=== PATIENT | female | born 1945 | race Caucasian/White ===

== ENCOUNTER 2021-03-16 06:40 | Inpatient (IN) | payer MEDICARE ==
[~2021-03-16] VITALS: Ht 152.4 cm; Wt 112.0 kg
--- NOTE | 2021-03-16 06:40 | NUR ---
PT TO ROOM VIA EMS STRETCHER FOR BEDSIDE TRIAGE
--- NOTE | 2021-03-16 07:30 | NUR ---
PATIENT HAVING TELENUROLGY CONSULT WITH DR ROSADO
[2021-03-16 08:03] LABS: GFR 54 ML/MIN (>=60 (CALC)); GFR FOR AFR.AMER. > 60 ML/MIN (>=60 (CALC))
[2021-03-16 08:06] LABS: HEMATOCRIT 41.1 % (37.0-47.0); HEMOGLOBIN 13.1 g/dl (12.0-16.0); IMMATURE GRANULOCYTES 0.2 % (0.0-5.0); MEAN CELL VOLUME 94.7 fL CALC (80.0-100.0); MEAN CORPUSCULAR HGB 30.2 pG CALC (26.0-32.0); MEAN CORPUSCULAR HGB CONC 31.9 g/dL CAL (32.0-36.0); NEUT# 4.39 thou/uL (2.00-7.15); RED BLOOD COUNT 4.34 mill/uL (4.20-5.60); RED CELL DISTRI WIDTH 14.4 % (11.5-15.5)
--- NOTE | 2021-03-16 08:10 | NUR ---
PATIENT RETURNED TO ROOM 12, CURRENTLY BEDSIDE.
[2021-03-16 08:23] LABS: ALKALINE PHOSPHATASE 94 u/l (38-126); ANION GAP 12 (6-22 (CALC)); BILIRUBIN, TOTAL 0.8 mg/dL (0.0-1.4); BUN 20 mg/dL (8-23); BUN/CREATININE RATIO 20 (12-20 (CALC)); CARBON DIOXIDE 26 mmol/l (22-30); CHLORIDE 100 mmol/l (95-108); ETHYL ALCOHOL 0 mg/dl (0-30); GFR 54 ML/MIN (>=60 (CALC)); GFR FOR AFR.AMER. > 60 ML/MIN (>=60 (CALC)); LIPASE 49 u/l (23-300); MAGNESIUM 1.8 mg/dL (1.6-2.3); POTASSIUM 4.5 mmol/l (3.5-5.1); SGOT/AST 23 u/l (9-36); SODIUM 134 mmol/l (137-146); TOTAL PROTEIN 7.5 g/dL (6.3-8.2)
[2021-03-16 08:25] LABS: ACT PARTIAL THROMBO TIME 23.3 SECONDS (20.0-32.5); INTERNATIONAL NORMALIZED RATIO 0.9 RATIO (0.7-1.3); PROTHROMBIN TIME 9.5 SECONDS (9.0-12.5)
--- NOTE | 2021-03-16 09:10 | NUR ---
PATIENT RETURNED TO ROOM AT THIS TIME. CURRENTLY BEDSIDE.
[2021-03-16 09:16] LABS: URINE BILIRUBIN - DIPSTICK NEGATIVE (NEGATIVE); URINE BLOOD DIPSTICK SMALL (NEGATIVE); URINE COLOR YELLOW; URINE GLUCOSE - DIPSTICK 100 mg/dL (NEGATIVE); URINE KETONE NEGATIVE (NEGATIVE); URINE LEUK ESTERASE NEGATIVE (NEGATIVE); URINE NITRITE - DIPSTICK NEGATIVE (Negative); URINE PROTEIN - DIPSTICK NEGATIVE (NEG-TRACE); URINE SPECIFIC GRAVITY 1.015; URINE UROBILINOGEN - DIPSTICK 0.2 E.U./dL (0.2)
[2021-03-16 09:26] LABS: D-DIMER 1.56 mg/L (0.19-0.60)
--- NOTE | 2021-03-16 13:14 | NUR ---
Reassessment of patient completed. No distress noted.
[2021-03-16] MEDS ORDERED: GABAPENTIN100 MG PO (13:50)
[2021-03-16] MEDS ORDERED: NOVOLIN R RELION (13:52)
[2021-03-16] MEDS ORDERED: NOVOLIN N100 UNIT (13:52)
--- NOTE | 2021-03-16 14:10 | NUR ---
RETURN CALL FROM ICU NURSE, REPORT GIVEN
--- NOTE | 2021-03-16 14:35 | NUR ---
PATIENT TO ICU AT THIS TIME
--- NOTE | 2021-03-16 14:35 | NUR ---
PT ARRIVED TO THE FLOOR VIA STRETCHER AND ONE PERSON ASSISTANCE FROM THE ER. PT ABLE TO SLIDE WITH MINIMAL ASSISTANCE FROM THE STRETCHER TO ICU BED. VSS, ADMISSION AND HISTORY AND NIH PREFORMED AT THIS TIME. PT ORIENTATED TO ROOM, RIGHTS, RESPONSIBILITIES AND CALL LIGHT. INSTRUCTED PT TO CALL FOR ASSISTANCE, VERBALIZES UNDERSTANDING. WILL CONTINUE TO MONITOR.
[2021-03-16 15:00] VITALS: BP 141/68
--- NOTE | 2021-03-16 15:27 | NUR ---
ALLERGIES CONFIRMED WITH PT, PT STATES SHE HAS ALLERGIES TO PENICILLIN. STATES SHE GETS HIVES WHEN TAKES PENICILLIN.
--- NOTE | 2021-03-16 15:48 | NUR ---
PT PLACED ON 2LPM NC PER PT SPO2 AND ABG. MARTÍN WELL AT THIS TIME. C4 PLANNER TO MONITOR.
[2021-03-16 16:00] VITALS: BP 135/89
[2021-03-16 17:00] VITALS: BP 133/63
[2021-03-16 18:00] VITALS: BP 138/74
--- NOTE | 2021-03-16 18:00 | NUR ---
PT NIH REMAINS 0 AT THIS TIME. TALKING ON CELLPHONE WITH DAUGHTER AND GRAND DAUGHTER. ACCUCHECK OBTAINED, INSULIN PROVIDED. PT DENIES NEEDS OR CONCERNS. MEAL TRAY SAT UP FOR PT. PT ABLE TO FEED SELF INDEPENDANYL. INSTRUCTED PT TO CALL FOR ASSISTANCE, VERBALIZES UNDERSTANDING.
--- NOTE | 2021-03-16 19:00 | NUR ---
ROCKY RECEIVED FROM MADIE SALDANA.
[2021-03-16 20:10] VITALS: BP 138/62
--- NOTE | 2021-03-16 20:19 | NUR ---
ASSESSMENT COMPLETE. VSS. PATIENT RESTING IN BED WATCHING TELEVISION. DENIES PAIN AT THIS TIME. NO CONCERNS EXPRESSED. BED IN LOW POSITION, LOCKED. CALL LIGHT WITHIN REACH, INSTRUCTED TO CALL FOR ASSISTANCE.
--- NOTE | 2021-03-16 23:00 | NUR ---
RESTING QUIETLY EYES CLOSED. NO DISTRESS NOTED AT THIS TIME. CALL LIGHT WITHIN REACH.
[2021-03-17] VITALS (7 sets, daily range): BP systolic 133–205; BP diastolic 60–86
--- NOTE | 2021-03-17 04:10 | NUR ---
RESTING QUIETLY. VSS. NO DISTRESS NOTED. CALL LIGHT WITHIN REACH.
[2021-03-17 05:06] LABS: HEMATOCRIT 39.8 % (37.0-47.0); HEMOGLOBIN 12.2 g/dl (12.0-16.0); MEAN CELL VOLUME 98.8 fL CALC (80.0-100.0); MEAN CORPUSCULAR HGB 30.3 pG CALC (26.0-32.0); MEAN CORPUSCULAR HGB CONC 30.7 g/dL CAL (32.0-36.0); RED BLOOD COUNT 4.03 mill/uL (4.20-5.60); RED CELL DISTRI WIDTH 14.4 % (11.5-15.5)
[2021-03-17 05:22] LABS: ANION GAP 9 (6-22 (CALC)); BUN 21 mg/dL (8-23); BUN/CREATININE RATIO 23 (12-20 (CALC)); CALCULATED LDLCHOLESTEROL 58 mg/dL (62-129 (CALC)); CARBON DIOXIDE 29 mmol/l (22-30); CHLORIDE 98 mmol/l (95-108); CHOLESTEROL HDL RATIO 4.3 (<4.4 (CALC)); CREATININE 0.9 mg/dL (0.5-1.0); GFR > 60 ML/MIN (>=60 (CALC)); GFR FOR AFR.AMER. > 60 ML/MIN (>=60 (CALC)); HDL CHOLESTEROL 30 mg/dL (>=40); MAGNESIUM 1.7 mg/dL (1.6-2.3); POTASSIUM 4.6 mmol/l (3.5-5.1); SODIUM 132 mmol/l (137-146); TOTAL CHOLESTEROL 131 mg/dl (0-199); TOTAL TRIGLYCERIDES 212 mg/dl (30-149); VLDL CHOLESTROL 42 mg/dl (0-48 (CALC))
--- NOTE | 2021-03-17 06:18 | NUR ---
600ML CLEAR YELLOW URINE EMPTIED FROM SUCTION CANISTER OF [place]. PATIENT C/O BACK PAIN AT THIS TIME, TYLENOL OFFERED.
--- NOTE | 2021-03-17 07:44 | NUR ---
BSSR RECEIVED FROM MADIE THAO. PT AWAKE ALERT AND APPROPRIATE. NIH REMAINS 0, PT DENIES PAIN, SOB OR DISCOMFORT. VS OBTAINED AND BP IS ELEVATED WILl MONITOR AND NOTIFY MD IF NEEDED.
--- NOTE | 2021-03-17 10:26 | NUR ---
PT OFF THE FLOOR AT THIS TIME FOR RADIOLOGY PROCEDURE, ABLE TO SIT AT SOB, STAND, PIVOT AND SIT IN WHEELCHAIR WITH MINIMAL STANDBY ASSISTANCE. PT PLACED ON PORTABLE O2. STABLE AT TIME OF DEPARTURE.
--- NOTE | 2021-03-17 12:00 | NUR ---
PT ARRIVED BACK TO THE FLOOR. UNSUCCESSFUL ATTEMPT X5 FOR NEW IV SITE IN ANTECUBITAL. MD NOTIFIED AND AWARE. CT OF BRAIN COMPLETED. PT WILLING TO SIT IN BS CHAIR FOR MEAL, GIVEN INSULIN, AND AM MEDICATIONS. PT AWARE OF TRANSFER TO MED-SURG UNIT. DENIES NEEDS OR CONCERNS. INSTRUCTED PT TO CALL FOR ASSISTANCE, VERBALIZES UNDERSTANDING.
--- NOTE | 2021-03-17 13:16 | NUR ---
REPORT CALLED TO MADIE BRANDON. AWARE OF NEED FOR NEW IV SITE, STATES WILL ATTEMPT ON FLOOR. PT STABLE AT TIME OF DEPARTURE.
--- NOTE | 2021-03-17 14:02 | NUR ---
PT RECEIVED TO ROOM 260 FROM ICU. SEEM ALERT AND ORIENTED X 3. NO NEURO DEFICITS NOTED UPON ASSESSMENT. ATTEMPTS TO START IV ONGOING.
--- NOTE | 2021-03-17 15:20 | NUR ---
FURTHER IV START ATTEMPTS UNSUCCESSFUL. DR MCGILL WAS TEXTED TO INFORM HIM, NO RESPONSE YET.
--- NOTE | 2021-03-17 16:12 | NUR ---
PT ASSISTED TO BSC WITH MODERATE ASSIST NEEDED. PT WITH OCCASIONAL STUMBLING OVER WORDS, SAYS THAT THIS IS NEW. NO PHYSICAL WEAKNESS NOTED.
--- NOTE | 2021-03-17 16:47 | NUR ---
PT WAS PROVIDED ZITHROMAX 500MG PO THIS AFTERNOON SHE DOES NOT HAVE IV SITE.
--- NOTE | 2021-03-17 20:00 | NUR ---
PHYSICAL ASSESMENT COMPLETE. PT CURRENTLY DENIES PAIN OR DISCOMFORT. SCHEDULED MEDICATIONS AND PRN MEDICATION ADMINISTERED, SEE E-ALIDA. BARTOLOME PLACED PER PTS REQUEST. HTN DISCUSSED WITH DR MCGILL. TO PLACE PRN BP MEDICINE. PT DENIES ANY NEEDS AT THIS TIME. PLAN OF CARE REVIEWED, PT DENIES QUESTIONS, VERBALIZES UNDERSTANDING. ITEMS WITHIN REACH, BED LOCKED IN LOW POSITION W/ BEDRAILS UP X2. CALL MABRY WITHIN REACH, AGREES TO CALL PRN.
[2021-03-18] VITALS (7 sets, daily range): BP systolic 130–193; BP diastolic 54–85
--- NOTE | 2021-03-18 | NUR ---
PT AWAKE REQUESTING MELATOIN TO HELP HER FALL ASLEEP. RESPIRATIONS REGULAR AND UNLABORED. ITEMS REMAIN WITHIN REACH, CALL MABRY REMAINS WITHIN REACH. BED REMAINS LOCKED AND IN LOW POSITION WITH BEDRAILS UP X2. WILL CONTINUE TO MONITOR.
--- NOTE | 2021-03-18 04:00 | NUR ---
PT RESTING IN BED, NO SIGNS OF DISTRESS NOTED, RESP EVEN AND UNLABORED. PT VOICES NO NEEDS OR COMPLAINTS AT THIS TIME. CALL LIGHT IN REACH, CONTINUE TO MONITOR.
[2021-03-18 05:26] LABS: HEMATOCRIT 41.4 % (37.0-47.0); MEAN CELL VOLUME 96.7 fL CALC (80.0-100.0); MEAN CORPUSCULAR HGB 30.4 pG CALC (26.0-32.0); MEAN CORPUSCULAR HGB CONC 31.4 g/dL CAL (32.0-36.0); RED BLOOD COUNT 4.28 mill/uL (4.20-5.60)
[2021-03-18 05:48] LABS: ANION GAP 10 (6-22 (CALC)); BUN 15 mg/dL (8-23); BUN/CREATININE RATIO 19 (12-20 (CALC)); CARBON DIOXIDE 29 mmol/l (22-30); CHLORIDE 97 mmol/l (95-108); CREATININE 0.8 mg/dL (0.5-1.0); GFR > 60 ML/MIN (>=60 (CALC)); GFR FOR AFR.AMER. > 60 ML/MIN (>=60 (CALC)); MAGNESIUM 1.6 mg/dL (1.6-2.3); POTASSIUM 4.3 mmol/l (3.5-5.1); SODIUM 132 mmol/l (137-146)
--- NOTE | 2021-03-18 07:00 | NUR ---
REPORT RECEIVED FROM MADIE BHANDARI
--- NOTE | 2021-03-18 07:50 | NUR ---
PT RESTING IN SEMI FOWLERS POSITION,A&O X3;VS OBTAINED AND ASSESSMENT COMPLETED;PT DENIES ANY CURRENT PAIN OR DISCOMFORTS,PAIN SCALE AND REPORTING EDUCATED;RESPIRATIONS EVEN AND UNLABORED ON O2 @ 2L VIA NC, CLEAR/DIMINISHED LUNG SOUNDS NOTED;NON-PRODUCTIVE NOTED;ABDOMEN DISTENDED/SOFT ON PALPATION AND ACTIVE IN ALL 4 QUADRANTS;WEAK PEDAL PULSES;SKIN INTACT;NO IV SITE, MD AWARE AND ORDER FOR PICCLINE PLACED;TELE MONITORING IN PLACE;ACCUCHECK 277, PT COVERED WITH SLIDING SCALE INSULIN PER ORDER;PT DENIES ANY ADDITIONAL NEEDS AND IS ENCOURAGED TO CALL FOR ASSISTANCE IF NEEDED;FALL PRECAUTIONS IN PLACE WITH BED IN THE LOWEST POSITION AND CALL LIGHT IN REACH;WILL CONTINUE TO MONITOR
--- NOTE | 2021-03-18 08:57 | NUR ---
PT TRANSFERRED TO RADIOLOGY IN STABLE CONDITION VIA WC ACCOMPANIED BY DANIEL.ENZO.
--- NOTE | 2021-03-18 10:11 | NUR ---
PT ARRIVED TO MED/SURG ROOM 260 IN STABLE CONDITION VIA WC ACCOMPANIED BY RADIOLOGY STAFF MEMBER.
--- NOTE | 2021-03-18 10:40 | NUR ---
BHANU SL PICCLINE FLUSHED AND PATENT WITH GOOD BLOOD RETURN NOTED.SITE MEASURING AT 32CM.ABX STARTED PER ORDER.
--- NOTE | 2021-03-18 10:43 | NUR ---
AND ROGERIO CAMERONRP AT BEDSIDE DISCUSSING POC.
--- NOTE | 2021-03-18 11:10 | NUR ---
PT RESTING IN SEMI FOWLERS POSITION;OXYGEN QUALIFICATION TEST COMPLETED AT THIS TIME;RESPIRATIONS SHALLOW ON RA, O2 SATS 87%;OXYGEN REPLACED AT 2L VIA NC AND OXYGEN SATS KRISTIAN TO 98%;PT QUALIFIES FOR HOME OXYGEN, ROGERIO CAMERONRP AND CASE MANAGEMENT NOTIFIED;PT DENIES ANY CURRENT PAIN OR DISCOMFORTS;TELE MONITORING IN PLACE;JULIANNA PICCLINE REMAINS PATENT;PT DENIES ANY ADDITIONAL NEEDS;ENCOURAGED TO CALL FOR ASSISTANCE IF NEEDED;FALL PRECAUTIONS IN PLACE WITH CALL LIGHT IN REACH;WILL CONTINUE TO MONITOR
[2021-03-18] MEDS ORDERED: OMEPRAZOLE20 MG PO (11:58)
[2021-03-18] MEDS ORDERED: ZOCOR20 M1 PO (12:01)
[2021-03-18] MEDS ORDERED: GABAPENTIN300 M2 PO ×3 (12:02→14:56)
[2021-03-18] MEDS ORDERED: FOSAMAX PLUS PO (12:04)
[2021-03-18] MEDS ORDERED: SYNTHROID200 MCG PO (12:04)
[2021-03-18] MEDS ORDERED: CALCIUM + D PO (12:06)
[2021-03-18] MEDS ORDERED: DICLOFENAC75 MG PO (12:07)
[2021-03-18] MEDS ORDERED: MELATONI1 XX (12:08)
[2021-03-18] MEDS ORDERED: ESTRACE VAG0.1 MG/GM VA (12:10)
--- NOTE | 2021-03-18 13:03 | NUR ---
RT AT BEDSIDE ADMINISTERING BREATHING TX.
--- NOTE | 2021-03-18 13:32 | NUR ---
SPOUSE AT BEDSIDE
[2021-03-18] MEDS ORDERED: SIMVASTATIN80 MG PO (14:40)
[2021-03-18] MEDS ORDERED: LEVOTHYROXIN125 MC1 PO (14:42)
[2021-03-18] MEDS ORDERED: ALENDRONATE35 MG PO (14:43)
[2021-03-18] MEDS ORDERED: CALCIUM600 M1 PO (14:49)
[2021-03-18] MEDS ORDERED: NOVOLIN N100 UNIT SC (14:51)
[2021-03-18] MEDS ORDERED: NOVOLIN N100 UNIT/M SC (14:53)
--- NOTE | 2021-03-18 14:53 | NUR ---
PT TRANSFERRED TO MED/SURG ROOM 261 DUE TO 260 BEING TO COLD.
[2021-03-18] MEDS ORDERED: NOVOLIN R100 UNIT/M SC (14:55)
[2021-03-18] MEDS ORDERED: MELATONIN10 MG PO (15:09)
--- NOTE | 2021-03-18 15:40 | NUR ---
PT RESTING IN SEMI FOWLERS POSITION TALKING ON THE PHONE;RESPIRATIONS EVEN AND UNLABORED ON O2 @ 2L VIA NC;PT DENIES ANY CURRENT PAIN OR DISCOMFORTS;TELE MONITORING IN PLACE;JULIANNA HOOPER PATENT;ALL SAFETY PRECAUTIONS REMAIN IN PLACE WITH BED IN THE LOWEST POSITION AND CALL LIGHT IN REACH;WILL CONTINUE TO MONITOR
--- NOTE | 2021-03-18 15:40 | NUR ---
PT RESTING IN SEMI FOWLERS POSITION TALKING ON THE PHONE;RESPIRATIONS EVEN AND UNLABORED ON O2 @ 2L VIA NC;PT DENIES ANY CURRENT PAIN OR DISCOMFORTS;TELE MONITORING IN PLACE;IV SITE PATENT TO JULIANNA;ALL SAFETY PRECAUTIONS REMAIN IN PLACE WITH BED IN THE LOWEST POSITION AND CALL LIGHT IN REACH;WILL CONTINUE TO MONITOR
--- NOTE | 2021-03-18 19:00 | NUR ---
RECEIVED REPORT FROM NURSE GARCIA, ASSUMED PATIENT CARE.
--- NOTE | 2021-03-18 20:00 | NUR ---
PATIENT RESTING IN BED WATCHING TV, ALERT AND ORIENETED X 4 ABLE TO MAKE NEEDS KNONW, WITH SINGLE LUMEN PICC LINE, FLUSHES WELL WITH GOOD BLOOD RETURN, REMAINS ON TELE SR 79, ACTIVE BOWEL SOUNDS, LBM 03/18, REMAINS ON O2 @ 2LPM VIA NC BREATHING SHALLOW, EXERTIONAL DYSPNEA NOTED, PATIENYT HAVING NON PRODUCTIVE COUGH, CURRENTLY RESTING CALL LIGHT AT REACH.
--- NOTE | 2021-03-18 21:27 | NUR ---
DIETARY SERVICES MANAGER MADE AWARE OF 2100 ACCUCHEK 499, WITH ORDERS MADE
--- NOTE | 2021-03-18 23:08 | NUR ---
NOTIFIED CUT OFF SAW GRADER ANIMAL HUMANE AGENT SUPERVISOR REPEAT ACCUCHEK 525
--- NOTE | 2021-03-18 23:11 | NUR ---
RECEIVED ORDERS FROM [facility] FOR BS 521 WITH ORDERS MADE FAX TO PHARMACY.
[2021-03-19 00:05] VITALS: BP 132/59
--- NOTE | 2021-03-19 00:50 | NUR ---
ACCUCHEK 475 AT THIS TIME, NUCLEAR PLANT EQUIPMENT OPERATOR AWARE NO NEW ORDERS MADE.
--- NOTE | 2021-03-19 04:30 | NUR ---
PATIENT HAS DUE BLOOD WORKS, SPECIMEN TAKEN FROM PICC LINE, IV FLUSHED WITH NO RESISTANCE, PATINET THEN ASSISTED TO BATHROOM TO VOID, CALL LIGHT AT REACH.
[2021-03-19 05:05] VITALS: BP 157/67
[2021-03-19 05:56] LABS: HEMATOCRIT 39.1 % (37.0-47.0); HEMOGLOBIN 12.5 g/dl (12.0-16.0); MEAN CELL VOLUME 94.7 fL CALC (80.0-100.0); MEAN CORPUSCULAR HGB 30.3 pG CALC (26.0-32.0); RED BLOOD COUNT 4.13 mill/uL (4.20-5.60); RED CELL DISTRI WIDTH 14.2 % (11.5-15.5)
[2021-03-19 06:17] LABS: CREATININE 1.1 mg/dL (0.5-1.0); POTASSIUM 4.7 mmol/l (3.5-5.1)
[2021-03-19 07:00] VITALS: BP 145/65
--- NOTE | 2021-03-19 07:00 | NUR ---
PATIENT ASSISTED TO BATHROOM AT THIS TIME AND PATIENT URINATED CLEAR YELLOW URINE AND THEN PATIENT ASSITED BACK TO BED. RUDOLPH DENIES ANY PAIN AT THIS TIME. BLASTING HELPER DONE SEE INTERVENTIONS. LUNG WANG ARE CLEAR IN UPPER AND DIMINISHED IN LOWER WANG. RUDOLPH IS CURRENTLY ON 2 LITERS OF O2 AND SPO2 IS 96%. RUDOLPH IS ON TELE AT THIS TIME AND BEING MONITORED BY ED. PATIENT HAS L UPPER ARM PICC LINE AND WAS FLUSHED AT THIS TIME. PATIENT ALERT AND ORIENTED X 3 NEURO CHECKS ARE UNCHAGED AND WIHTOUT DIFICITS AT THIS TIME. WILL CONTINUE TO MONIOTR.
--- NOTE | 2021-03-19 10:10 | NUR ---
DR. ESCALANTE AND ARASELI JOSEPH ARPN IN TO SEE PATIENT AT THIS TIME.
[2021-03-19] MEDS ORDERED: ZITHROMAX250 MG PO (10:23)
[2021-03-19] MEDS ORDERED: AMLODIPINE BESYL5 MG PO (10:23)
[2021-03-19 10:55] VITALS: BP 172/70
[2021-03-19 12:10] VITALS: BP 152/78
--- NOTE | 2021-03-19 12:15 | NUR ---
YOANA SITTING IN ROOM AT THIS TIME IN CHAIR. O2 HAS BEEN DELIVERED AT THIS TIME AND PATIENT HAS BEEN D/C AT THIS TIME. PATIENT VERBALIZES UNDERSTANDING OF D/C AT THIS TIME.
--- NOTE | 2021-03-19 12:43 | NUR ---
LEFT UPPER ARM PICC LINE REMOVED AT THIS TIME TIP INTACT AND SITE CLEANED AND BIO-PATCH PLACED WITH TEGADERM DRESSING. PATIENT EDUCATED ON LEAVING DRESSING IN PLACE FOR 24 HOURS AND PATIENT VERBALIZED UNDERSTANDING OF THESE INSTRUCTIONS. PATIENT TELE MONITOR REMOVED AND ED NOTIFIED.
--- NOTE | 2021-03-19 13:31 | NUR ---
Discharge instructions given. Patient verbalizes understanding of same. Discharged in stable condition via Wheelchair to Home with *Other. All belongings sent with pt. [facility]
== END 2021-03-19 13:28 | disposition home or self-care (01) | DRG 194 ==
LOC: ED 06:40 → ED-I 09:48 → ED 10:00 → ICU 10:01 → ED-I 10:01 → ICU 14:47 → MS2 03-17 14:00
PROVIDERS: Nurse Practitioner; ADMIT Hospitalist; ATTEND Hospitalist
PROC: 02HV33Z Insertion of Infusion Device into Superior Vena Cava, Percutaneous Approach (ICD-10-PCS; principal; 2021-03-18)
PROC: B518ZZA Fluoroscopy of Superior Vena Cava, Guidance (ICD-10-PCS; 2021-03-18)
DX: J18.9 Pneumonia, unspecified organism (principal); J44.1 Chronic obstructive pulmonary disease with (acute) exacerbation; I16.1 Hypertensive emergency; Z68.42 Body mass index [BMI] 45.0-49.9, adult; G45.9 Transient cerebral ischemic attack, unspecified; J44.0 Chronic obstructive pulmonary disease with (acute) lower respiratory infection; I10 Essential (primary) hypertension; E11.9 Type 2 diabetes mellitus without complications; E78.5 Hyperlipidemia, unspecified; R09.02 Hypoxemia; E66.9 Obesity, unspecified; E03.8 Other specified hypothyroidism; Z20.822 Contact with and (suspected) exposure to COVID-19
CPT/HCPCS: J1650; Q9967

== ENCOUNTER 2023-02-17 11:00 | Observation (INO) | payer MEDICARE, OTHER ==
[2023-02-17] VITALS (27 sets, daily range): BP systolic 146–195; BP diastolic 61–100
[~2023-02-17] VITALS: Ht 152.4 cm; Wt 107.0 kg
[~2023-02-17 11:00] MED LIST: ALENDRONATE35 MG PO; AMLODIPINE BESYL5 MG PO; CALCIUM + D PO; CALCIUM600 M1 PO; DICLOFENAC75 MG PO; ESTRACE VAG0.1 MG/GM VA; FOSAMAX PLUS PO; GABAPENTIN100 MG PO; GABAPENTIN300 M2 PO; LEVOTHYROXIN125 MC1 PO; MELATONI1 XX; MELATONIN10 MG PO; NOVOLIN N100 UNIT; NOVOLIN N100 UNIT SC; NOVOLIN N100 UNIT/M SC; NOVOLIN R RELION; NOVOLIN R100 UNIT/M SC; OMEPRAZOLE20 MG PO; SIMVASTATIN80 MG PO; SYNTHROID200 MCG PO; ZITHROMAX250 MG PO; ZOCOR20 M1 PO
[2023-02-17 12:48] LABS: URINE BILIRUBIN - DIPSTICK Negative (NEGATIVE); URINE BLOOD DIPSTICK Trace-intact (NEGATIVE); URINE CLARITY Clear; URINE COLOR Yellow; URINE GLUCOSE - DIPSTICK Negative (NEGATIVE); URINE KETONE Negative (NEGATIVE); URINE LEUK ESTERASE Negative (Negative); URINE NITRITE - DIPSTICK Negative (Negative); URINE PROTEIN - DIPSTICK Trace mg/dL (NEG-TRACE); URINE SPECIFIC GRAVITY 1.015; URINE UROBILINOGEN - DIPSTICK 0.2 E.U./dL (0.2)
[2023-02-17 12:49] LABS: BASO% 0.3 % (0-3); EOS% 2.8 % (0-8); HEMATOCRIT 42.9 % (37.0-47.0); HEMOGLOBIN 13.8 g/dl (12.0-16.0); IMMATURE GRANULOCYTES 0.3 % (0.0-5.0); LYMPH% 12.4 % (15-41); MEAN CELL VOLUME 99.8 fL CALC (80.0-100.0); MEAN CORPUSCULAR HGB 32.1 pG CALC (26.0-32.0); MEAN CORPUSCULAR HGB CONC 32.2 g/dL CAL (32.0-36.0); MONO% 7.5 % (2-13); NEUT# 4.63 thou/uL (2.00-7.15); NEUT% 76.7 % (42-76); RED BLOOD COUNT 4.3 mill/uL (4.20-5.60); RED CELL DISTRI WIDTH 12.8 % (11.5-15.5)
[2023-02-17 13:06] LABS: ALBUMIN 4.2 g/dL (3.2-5.0); ALKALINE PHOSPHATASE 80 u/l (38-126); ANION GAP 12 (6-22 (CALC)); BUN 23 mg/dL (8-23); BUN/CREATININE RATIO 22 (12-20 (CALC)); CARBON DIOXIDE 28 mmol/l (22-30); CHLORIDE 95 mmol/l (95-108); GFR FOR AFR.AMER. > 60 ML/MIN (>=60 (CALC)); GFR OTHER RACES 54 ML/MIN (>=60 (CALC)); POTASSIUM 4.8 mmol/l (3.5-5.1); SGOT/AST 39 u/l (9-36); SODIUM 130 mmol/l (137-146); TOTAL PROTEIN 7.8 g/dL (6.3-8.2)
[2023-02-17 13:39] LABS: BILIRUBIN, TOTAL 1.2 mg/dL (0.02-1.3)
[2023-02-17] MEDS ORDERED: MELOXICAM15 MG PO (16:35)
[2023-02-17] MEDS ORDERED: AMLODIPINE BESYL5 MG PO (16:36)
[2023-02-17] MEDS ORDERED: OS-CAL 500500 M1 PO (16:37)
[2023-02-17] MEDS ORDERED: MULTI VIT PO (16:37)
[2023-02-18] VITALS (7 sets, daily range): BP systolic 162–167; BP diastolic 76–81
[2023-02-18 08:57] LABS: MAGNESIUM 1.8 mg/dL (1.6-2.3)
[2023-02-18] MEDS ORDERED: LIDOCAINE PAIN RE4 % TD (13:34)
[2023-02-18] MEDS ORDERED: FLEXERIL5 M1 PO (13:34)
== END 2023-02-18 15:31 | disposition home health service (06) ==
LOC: ED 11:00 → ED-I 16:40 → ED 16:48 → MS2 16:49
PROVIDERS: Family Medicine; ADMIT Student in an Organized Health Care Education/Training Program; ATTEND Student in an Organized Health Care Education/Training Program
DX: J44.1 Chronic obstructive pulmonary disease with (acute) exacerbation (principal); R09.02 Hypoxemia; E87.1 Hypo-osmolality and hyponatremia; I10 Essential (primary) hypertension; E11.9 Type 2 diabetes mellitus without complications; E03.9 Hypothyroidism, unspecified; H91.90 Unspecified hearing loss, unspecified ear; Z79.4 Long term (current) use of insulin; Z91.81 History of falling
CPT/HCPCS: J1650

== ENCOUNTER 2023-12-22 14:21 | Emergency (ER) | payer MEDICARE, OTHER ==
[2023-12-22] VITALS (15 sets, daily range): BP systolic 106–163; BP diastolic 56–116
[~2023-12-22] VITALS: Ht 152.4 cm; Wt 113.4 kg
[~2023-12-22 14:21] MED LIST changes: +FLEXERIL5 M1 PO; +LIDOCAINE PAIN RE4 % TD; +MELOXICAM15 MG PO; +MULTI VIT PO; +OS-CAL 500500 M1 PO
[2023-12-22 15:14] LABS: EOS% 3.4 % (0-8); HEMATOCRIT 43.2 % (37.0-47.0); HEMOGLOBIN 13.6 g/dl (12.0-16.0); IMMATURE GRANULOCYTES 0.2 % (0.0-5.0); LYMPH% 13.1 % (15-41); MEAN CELL VOLUME 102.6 fL CALC (80.0-100.0); MEAN CORPUSCULAR HGB 32.3 pG CALC (26.0-32.0); MEAN CORPUSCULAR HGB CONC 31.5 g/dL CAL (32.0-36.0); MONO% 6.8 % (2-13); NEUT# 3.14 thou/uL (2.00-7.15); NEUT% 76.5 % (42-76); RED BLOOD COUNT 4.21 mill/uL (4.20-5.60)
[2023-12-22 15:37] LABS: ALBUMIN 3.5 g/dL (3.2-5.0); BILIRUBIN, TOTAL 0.9 mg/dL (0.02-1.3); CREATININE 1.2 mg/dL (0.5-1.0); POTASSIUM 4.9 mmol/l (3.5-5.1); TOTAL PROTEIN 6.4 g/dL (6.3-8.2)
[2023-12-22] MEDS ORDERED: INSULIN REGULAR (HUMAN) 100 UNIT/ML INJ IV ONE (16:10)
[2023-12-22 17:22] LABS: URINE BILIRUBIN - DIPSTICK Negative (NEGATIVE); URINE BLOOD DIPSTICK Small (NEGATIVE); URINE GLUCOSE - DIPSTICK >=1000 mg/dL (NEGATIVE); URINE KETONE Negative (NEGATIVE); URINE LEUK ESTERASE Negative (NEGATIVE); URINE NITRITE - DIPSTICK Negative (Negative); URINE PH 5.5 (4.5-8.0); URINE PROTEIN - DIPSTICK 30 mg/dL (NEG-TRACE); URINE SPECIFIC GRAVITY 1.015; URINE UROBILINOGEN - DIPSTICK 0.2 E.U./dL (0.2)
[2023-12-22 17:23] LABS: URINE COLOR Yellow
[2023-12-22 17:30] LABS: URINE SQUAMOUS EPITHELIAL CELL FEW EPI/hpf (0-FEW)
== END 2023-12-22 18:44 | disposition home or self-care (01) ==
LOC: ED 14:21
PROVIDERS: Nurse Practitioner Acute Care
DX: E11.65 Type 2 diabetes mellitus with hyperglycemia (principal); R09.02 Hypoxemia; I10 Essential (primary) hypertension; K21.9 Gastro-esophageal reflux disease without esophagitis; J44.9 Chronic obstructive pulmonary disease, unspecified; Z79.4 Long term (current) use of insulin

== ENCOUNTER 2024-04-28 20:58 | Inpatient (IN) | payer MEDICARE, OTHER ==
[2024-04-28] VITALS (7 sets, daily range): BP systolic 80–177; BP diastolic 61–91
[~2024-04-28] VITALS: Ht 152.4 cm; Wt 77.0 kg
[2024-04-28] MEDS ORDERED: IPRATROPIUM-Albuterol 0.5MG-2.5MG/3 ML NEB ONE (21:05)
[2024-04-28] MEDS ORDERED: ASPIRIN 81 MG/TAB VT ONE (21:05)
[2024-04-28] MEDS ORDERED: methylPREDNISolone SODIUM SUCC 125 MG/2 ML SDV IV ONE (21:05)
[2024-04-28 21:40] LABS: BASO% 0.1 % (0-3); EOS% 0.1 % (0-8); HEMOGLOBIN 15.5 g/dl (12.0-16.0); IMMATURE GRANULOCYTES 0.4 % (0.0-5.0); LYMPH% 3.7 % (15-41); MEAN CELL VOLUME 98.8 fL CALC (80.0-100.0); MEAN CORPUSCULAR HGB 31.9 pG CALC (26.0-32.0); MEAN CORPUSCULAR HGB CONC 32.3 g/dL CAL (32.0-36.0); MONO% 4.3 % (2-13); NEUT# 18.22 thou/uL (2.00-7.15); NEUT% 91.4 % (42-76); RED BLOOD COUNT 4.86 mill/uL (4.20-5.60); RED CELL DISTRI WIDTH 12.8 % (11.5-15.5)
[2024-04-28 21:52] LABS: ALBUMIN 4.4 g/dL (3.2-5.0); ALKALINE PHOSPHATASE 103 u/l (38-126); ANION GAP 17 (6-22 (CALC)); BILIRUBIN, TOTAL 1.4 mg/dL (0.02-1.3); BUN 36 mg/dL (8-23); BUN/CREATININE RATIO 31 (12-20 (CALC)); CARBON DIOXIDE 26 mmol/l (22-30); CHLORIDE 93 mmol/l (95-108); CPK 80 u/l (30-135); CREATININE 1.2 mg/dL (0.5-1.0); ESTIMATED GFR 46 ML/MIN (>=90 (CALC)); LIPASE 1462 u/l (23-300); MAGNESIUM 1.9 mg/dL (1.6-2.3); POTASSIUM 3.8 mmol/l (3.5-5.1); SGOT/AST 23 u/l (9-36); SODIUM 132 mmol/l (137-146); TOTAL PROTEIN 8.2 g/dL (6.3-8.2)
--- NOTE | 2024-04-28 21:58 | NUR ---
PATIENT VOMITED AT THIS TIME. EDP NOTIFIED
[2024-04-28] MEDS ORDERED: SODIUM CHLORIDE 0.9% 1,000 ML IV ONE ×2 (22:00)
[2024-04-28] MEDS ORDERED: ONDANSETRON HCl 4 MG/2 ML SDV IV ONE ×2 (22:00→22:05)
[2024-04-28] MEDS ORDERED: cefTRIAXone SODIUM 2 GM in SODIUM CHLORIDE 0.9% 100 ML IV ONE (22:05)
[2024-04-28] MEDS ORDERED: TOUJEO SOL300 UNIT/M SC (22:36)
[2024-04-28] MEDS ORDERED: CALCIUM + VITAM1 TAB (22:36)
--- NOTE | 2024-04-28 23:00 | NUR ---
PATIENT NOTIFIED OF PLAN OF AND CONTINUED WAIT TIME FOR RESULTS
[2024-04-28] MEDS ORDERED: SODIUM CHLORIDE 0.9% 1,000 ML IV SCH (23:05)
[2024-04-29] VITALS (21 sets, daily range): BP systolic 110–208; BP diastolic 53–151
--- NOTE | 2024-04-29 | NUR ---
PATIENT RESTING IN BED, AT BEDSIDE.
[2024-04-29 00:35] LABS: URINE BILIRUBIN - DIPSTICK Negative (NEGATIVE); URINE BLOOD DIPSTICK Trace-intact (NEGATIVE); URINE COLOR Yellow; URINE GLUCOSE - DIPSTICK >=1000 mg/dL (NEGATIVE); URINE KETONE Trace mg/dL (NEGATIVE); URINE LEUK ESTERASE Negative (NEGATIVE); URINE NITRITE - DIPSTICK Negative (Negative); URINE PH 5.5 (4.5-8.0); URINE PROTEIN - DIPSTICK >=300 mg/dL (NEG-TRACE); URINE SPECIFIC GRAVITY 1.025; URINE UROBILINOGEN - DIPSTICK 0.2 E.U./dL (0.2)
[2024-04-29 00:40] LABS: URINE BACTERIA MODERATE hpf; URINE SQUAMOUS EPITHELIAL CELL MODERATE EPI/hpf (0-FEW)
[2024-04-29] MEDS ORDERED: hydrALAZINE HCL 20 MG/ML VIAL(1 ML) IV ONE ×2 (01:15)
[2024-04-29] MEDS ORDERED: DOXYCYCLINE HYCLATE 100 MG/CAP PO ONE (01:15)
[2024-04-29] MEDS ORDERED: DEXAMETHASONE 2 MG/TAB TAB PO ONE (01:15)
[2024-04-29] MEDS ORDERED: CLONIDINE0.2 MG PO (01:18)
[2024-04-29] MEDS ORDERED: DOXYCYCL HYC100 M4 PO (01:18)
--- NOTE | 2024-04-29 01:45 | NUR ---
PATIENT UPDATED ON CONTINUED WAIT TIME
[2024-04-29] MEDS ORDERED: IPRATROPIUM-Albuterol 0.5MG-2.5MG/3 ML IN ONE (01:50)
--- NOTE | 2024-04-29 02:30 | NUR ---
CALLED TO MEDIA OPERATOR PT. STATES SHE CAN'T GET INTO THE CAMPER THERE ARE 8 STEPS. SHE NEEDS TO BE ABLE TO WALK SO HE WILL NOT BE COMING TO GET HER.
--- NOTE | 2024-04-29 02:45 | NUR ---
PATIENT UP TO THE BATHROOM AT THIS TIME. STANDBY ASSIST PROVIDED. PATIENT REPORTS THAT SHE HAS BEEN WEAK SINCE AT LEAST THURSDAY, REPORTS HER MEMORY IS NOT THAT GOOD ANYMORE, AND DOES NOT RECALL ANYTHING ELSE THAT HAPPENED. PATIENT ABLE SIT ON EDGE OF BED AND STAND. PATIENT REPORTS SHE USES A WALKER, BUT HAS DIFFICULTY GETTING UP THE 8 STEPS TO HER RV. PATIENT REPORTS PRIOR TO LAST THURSDAY, SHE WAS ABLE TO WALK WITHOUT ANY DIFFICULTY. PATIENT STATES SHE JUST GOT BACK FROM A ROAD TRIP, AND DID NOT EXPERIENCE ANY DIFFICULTY ON A TRIP.
--- NOTE | 2024-04-29 03:00 | NUR ---
WHILE REVIEWING PATIENT RECORDS, PATIENT WAS SEEN PRIOR FOR TIA, NEGATIVE WORK UP, CT BRAIN ON THIS VISIT HAD CHRONIC FINDINGS, NOT SEEN ON TIA VISIT. EDP NOTIFIED, INQUIRED ON POSSIBILITY OF RECENT STROKE AND POSSIBLE NEED FOR ADMISSION. PATIENT HAS NO CURRENT DEFICITS. BUT HAS TROUBLE RECOLLECTING PAST EVENTS.
--- NOTE | 2024-04-29 04:30 | NUR ---
PATIENT WAS SLEEPING WITH EYES CLOSED, RISE AND FALL OF CHEST NOTED, RESPIRATIONS EVEN AND UNLABORED. CALL IT WITHIN ARM S REACH
--- NOTE | 2024-04-29 04:30 | NUR ---
PATIENT IS SLEEPING WITH EYES CLOSED, RISE AND FALL OF CHEST NOTED, RESPIRATIONS EVEN IN AN
--- NOTE | 2024-04-29 05:38 | NUR ---
PATIENT RESITNG IN BED, OXYGEN REPLACED.
[2024-04-29] MEDS ORDERED: ALUM & MAG HYDROX-SIMETHICONE 30 ML PO PRN (06:45)
[2024-04-29] MEDS ORDERED: ONDANSETRON HCl 4 MG/2 ML SDV IV PRN ×2 (06:45→09:25)
[2024-04-29] MEDS ORDERED: IBUPROFEN 800 MG/TAB PO PRN (06:45)
[2024-04-29] MEDS ORDERED: FAMOTIDINE 10MG/ML 2ML SDV IV PRN (06:45)
[2024-04-29] MEDS ORDERED: Polyethylene Glycol 3350 17 GM/PKT PO PRN (06:45)
[2024-04-29] MEDS ORDERED: ONDANSETRON 4 MG/TAB ODT PO PRN (06:45)
--- NOTE | 2024-04-29 06:51 | NUR ---
REPORT GIVEN TO LAURENT ON MED SURG
--- NOTE | 2024-04-29 07:06 | NUR ---
REPORT GIVEN TO ANGEL RN, RN TO ASSUME CARE OF PATIENT FOR TRANSPORT TO FLOOR.
--- NOTE | 2024-04-29 08:27 | NUR ---
PT TRANSPORTED VIA WC TO ROOM 270. TRANSFERRED CARE OF PT.
--- NOTE | 2024-04-29 08:30 | NUR ---
PATIENT ARRIVED TO FLOOR VIA STRETCHER. NEW ADMIT ADMITTED FOR WEAKNESS AND SOB. PATIENT A/OX4, NO C/O PAIN, NO RESPIRATORY DISTRESS PATIENT ON O2 AT 3L. PATIENT SKIN INTACT. PATIENT LAST BM WAS TODAY AND PATIENT HAS POSITIVE BOWEL SOUNDS. PATIENT IS MAX ASSIST TO BED COMMODE AND PATIENT VOIDED X1.
[2024-04-29] MEDS ORDERED: Meropenem 1 GM in SODIUM CHLORIDE 0.9% 100 ML IV SCH (09:18)
[2024-04-29] MEDS ORDERED: DEXTROSE 250 ML IV PRN ×2 (09:20→20:25)
[2024-04-29] MEDS ORDERED: SODIUM CHLORIDE 0.9% 1,000 ML IV PRN (09:20)
[2024-04-29] MEDS ORDERED: IPRATROPIUM-Albuterol 0.5MG-2.5MG/3 ML NEB PRN (09:25)
[2024-04-29 09:41] LABS: ALBUMIN 3.6 g/dL (3.2-5.0); CREATININE 1.1 mg/dL (0.5-1.0); POTASSIUM 4.1 mmol/l (3.5-5.1); TOTAL PROTEIN 6.8 g/dL (6.3-8.2)
[2024-04-29 09:54] LABS: BILIRUBIN, TOTAL 0.7 mg/dL (0.02-1.3)
[2024-04-29] MEDS ORDERED: LISINOPRIL 20 MG/TAB PO SCH (10:00)
[2024-04-29] MEDS ORDERED: Pantoprazole Sodium 40 MG VIAL (Protonix) IV SCH (10:00)
[2024-04-29] MEDS ORDERED: INSULIN GLARGINE 100 UNITS/ML SC SCH ×2 (10:00→20:25)
[2024-04-29] MEDS ORDERED: INSULIN LISPRO 100 UNITS/ML ML SC SCH ×3 (11:00→21:00)
[2024-04-29 11:05] LABS: ALBUMIN 3.5 g/dL (3.2-5.0); BILIRUBIN, TOTAL 0.8 mg/dL (0.02-1.3); POTASSIUM 4.4 mmol/l (3.5-5.1); TOTAL PROTEIN 6.5 g/dL (6.3-8.2)
--- NOTE | 2024-04-29 20:00 | NUR ---
PT RECEIVED IN STABLE CONDITION. RESTING IN BED. DENIES C/O PAIN/DISCOMFORT. NO S/S OF DISTRESS. 02 AT 3L VIA NC. ON BEDREST. ENCOURAGE TO USE CALL LIGHT FOR ASSISTANCE. CALL LIGHT WITHIN REACH. WILL CONTINUUE TO MONITOR.
[2024-04-29] MEDS ORDERED: hydrALAZINE HCL 20 MG/ML VIAL(1 ML) IV PRN (20:20)
--- NOTE | 2024-04-29 21:00 | NUR ---
BLOOD GLUCOSE OF 421. JAKY KHALIL MD NOTIFIED. NEW ORDERS. SEE MAR. ADMINISTERED LANTUS 5 UNITS SQ 1X DOSE AND HUMALOG 10 UNITS SQ 1X DOSE ORDERED. ZOFRAN 4 MG IV PRN GIVEN FOR NAUSEA. CALL LIGHT IN REACH. WILL CONTINUE TO MONITOR.
[2024-04-30] VITALS (7 sets, daily range): BP systolic 151–191; BP diastolic 70–86
[2024-04-30 05:38] LABS: BASO% 0.1 % (0-3); IMMATURE GRANULOCYTES 0.8 % (0.0-5.0); LYMPH% 3.4 % (15-41); MEAN CELL VOLUME 100.8 fL CALC (80.0-100.0); MEAN CORPUSCULAR HGB 32.8 pG CALC (26.0-32.0); MEAN CORPUSCULAR HGB CONC 32.6 g/dL CAL (32.0-36.0); MONO% 5.3 % (2-13); NEUT# 16.13 thou/uL (2.00-7.15); NEUT% 90.4 % (42-76); RED BLOOD COUNT 3.93 mill/uL (4.20-5.60)
[2024-04-30 05:50] LABS: HEMATOCRIT 39.6 % (37.0-47.0); HEMOGLOBIN 12.9 g/dl (12.0-16.0)
[2024-04-30 05:58] LABS: BILIRUBIN, TOTAL 0.5 mg/dL (0.02-1.3); CREATININE 0.8 mg/dL (0.5-1.0); MAGNESIUM 1.8 mg/dL (1.6-2.3); POTASSIUM 4.1 mmol/l (3.5-5.1); TOTAL PROTEIN 5.8 g/dL (6.3-8.2)
--- NOTE | 2024-04-30 07:18 | NUR ---
PATIENT SITTING UP IN BED. PATIENT A7OX3 AND ABLE TO MAKE NEEDS KNOWN. PATIENT DENIES ANY NEEDS AT THIS TIME.
[2024-04-30] MEDS ORDERED: oxyCODONE HCL 5 MG/TAB PO PRN (10:40)
[2024-04-30] MEDS ORDERED: LACTATED RINGER'S 1,000 ML IV PRN (10:40)
[2024-04-30] MEDS ORDERED: DEXTROSE 250 ML IV PRN ×3 (10:40→10:45)
[2024-04-30] MEDS ORDERED: INSULIN GLARGINE 100 UNITS/ML SC SCH (11:00)
[2024-04-30] MEDS ORDERED: INSULIN LISPRO 100 UNITS/ML ML SC SCH (11:00)
--- NOTE | 2024-04-30 12:01 | NUR ---
PATIENT LAYING IN BED. SPOUSE AT BEDSIDE. PATIENT DENIES ANY NEEDS AT THIS TIME.
--- NOTE | 2024-04-30 15:42 | NUR ---
PATIENT SITTING UP IN BED, WATCHING TV. PATIENT DENIES ANY NEEDS AT THIS TIME
--- NOTE | 2024-04-30 19:34 | NUR ---
Pt is alert and orient. She is able to make needs known. Pt is waiting for placement at this time. Pt assessment complete. Pt is breathing even and non-labored on 3L n/c. No complaint of pain or discomfort. Bed in low position with call light within reach.
[2024-05-01 00:16] VITALS: BP 166/68
--- NOTE | 2024-05-01 00:49 | NUR ---
Pt is laying in bed on her back. No distress noted. Pt repositioned for comfort. Breathing remains even and non-labored. Bed remains in low position with call light within reach.
[2024-05-01 03:53] VITALS: BP 170/80
--- NOTE | 2024-05-01 04:13 | NUR ---
Pt is up watching tv. Warm compress administered to upper left shoulder for comfort. Pt not in distress at this time. Breathing remains even and non-labored on room air. Bed in low position for saftey with call light within reach.
--- NOTE | 2024-05-01 07:15 | NUR ---
PATIENT LAYING IN BED. PATIENT A&OX3 AND ABLE TO MAKE NEEDS KNOWN. PATIENT DENIES ANY NEEDS AT THIS TIME.
[2024-05-01 07:28] VITALS: BP 194/93
[2024-05-01 08:30] VITALS: BP 174/68
[2024-05-01] MEDS ORDERED: INSULIN GLARGINE 100 UNITS/ML SC SCH (09:00)
[2024-05-01 10:54] LABS: EOS% 0.4 % (0-8); HEMATOCRIT 43.1 % (37.0-47.0); IMMATURE GRANULOCYTES 0.3 % (0.0-5.0); MEAN CELL VOLUME 98.2 fL CALC (80.0-100.0); MEAN CORPUSCULAR HGB 31.9 pG CALC (26.0-32.0); MEAN CORPUSCULAR HGB CONC 32.5 g/dL CAL (32.0-36.0); MONO% 6.4 % (2-13); NEUT# 10.71 thou/uL (2.00-7.15); NEUT% 87.9 % (42-76); RED BLOOD COUNT 4.39 mill/uL (4.20-5.60); RED CELL DISTRI WIDTH 12.6 % (11.5-15.5)
[2024-05-01] MEDS ORDERED: hydroCHLOROthiazide 12.5 MG/CAP PO SCH (11:00)
[2024-05-01 11:30] VITALS: BP 155/74
[2024-05-01 11:53] LABS: ALBUMIN 2.8 g/dL (3.2-5.0); BILIRUBIN, TOTAL 0.9 mg/dL (0.02-1.3); CREATININE 0.6 mg/dL (0.5-1.0); POTASSIUM 3.5 mmol/l (3.5-5.1); TOTAL PROTEIN 5.5 g/dL (6.3-8.2)
--- NOTE | 2024-05-01 11:57 | NUR ---
PATIENT LAYING IN BED, HAVING LUNCH. PATIENT DENIES ANY NEEDS AT THIS TIME.
--- NOTE | 2024-05-01 13:00 | NUR ---
RECEIVED REPORT FROM MELQUIADES AND PT RESTING TO LEFT SIDE IN BED WITHOUT COMPLAINTS. PT WITH GENERALIZED WEAKNESS WITH SOME DISORIENTATION TO YEAR. VITALS TAKEN AND WNL. MELQUIADES AT BEDSIDE AND INDICATED HER ORIENTATION WAS UNCHANGED. WILL CONTINUE TO MONITOR. CALL ;LIGHT IN REACH AND BED ALARM IN PLACE.
--- NOTE | 2024-05-01 18:00 | NUR ---
VISITED AT BEDSIDE AND UPDATED ON THE POC. IVF CONTINUE AND PT REMAINS WITHOUT COMPLAINTS. ENCOURAGED PT TO GET OUT OF BED EVERY 2 HOURS TO INCREASE HER ACTIVITY DUE TO HER LUNGS. PT ASSISTED TO BSC X 1 AND PASSED FLATUS. NO OTHER CHANGES TO REPORT THIS SHIFT. PT POTENTIAL DISCHARGE TO [facility] TOM[facility]ROW.
[2024-05-01 18:52] VITALS: BP 176/59
--- NOTE | 2024-05-01 19:45 | NUR ---
Pt is alert and orient laying in bed watching television. Assessment complete. No complaint of pain or discomfort at this time. No distress noted. Pt is breathing even and non-labored on room air. Bed in low position with call light within reach.
--- NOTE | 2024-05-01 23:58 | NUR ---
Pt is laying in bed watching television. Heated packs adminstered to right shoulder and back for discomfort. No distress noted. Breathing remains even and non-labored. Bed in low position call meyers in reach.
[2024-05-02] VITALS (8 sets, daily range): BP systolic 137–184; BP diastolic 62–87
--- NOTE | 2024-05-02 03:59 | NUR ---
Pt is resting in bed on her back with her eyes closed. Breathing is even and non-labored. No distress noted. No complaint of pain or discomfort. Bed in low position call light within reach.
[2024-05-02 05:50] LABS: BASO% 0.1 % (0-3); EOS% 3.3 % (0-8); HEMATOCRIT 43.3 % (37.0-47.0); IMMATURE GRANULOCYTES 0.3 % (0.0-5.0); LYMPH% 10.1 % (15-41); MEAN CELL VOLUME 99.3 fL CALC (80.0-100.0); MEAN CORPUSCULAR HGB 32.1 pG CALC (26.0-32.0); MEAN CORPUSCULAR HGB CONC 32.3 g/dL CAL (32.0-36.0); NEUT# 7.59 thou/uL (2.00-7.15); NEUT% 77.2 % (42-76); RED BLOOD COUNT 4.36 mill/uL (4.20-5.60); RED CELL DISTRI WIDTH 12.5 % (11.5-15.5)
[2024-05-02 05:54] LABS: ALBUMIN 2.7 g/dL (3.2-5.0); BILIRUBIN, TOTAL 0.9 mg/dL (0.02-1.3); CREATININE 0.7 mg/dL (0.5-1.0); POTASSIUM 3.4 mmol/l (3.5-5.1); TOTAL PROTEIN 5.4 g/dL (6.3-8.2)
[2024-05-02 06:10] LABS: MAGNESIUM 1.5 mg/dL (1.6-2.3)
--- NOTE | 2024-05-02 07:15 | NUR ---
RECEIVED REPORT FROM RL AND PT SEEN RESTING IN BED TO LEFT SIDE WITHOUT COMPLAINTS. BP DOWN SINCE HYDRALAZINE GIVEN AND PT DENIED PAIN. IV PATENT TO LEFT FOREARM. CALL LIGHT IN REACH. WILL MONITOR.
[2024-05-02 09:22] LABS: AMYLASE 40 u/l (30-110); LIPASE 179 u/l (23-300)
[2024-05-02] MEDS ORDERED: POTASSIUM CHLORIDE 20 MEQ/PKT POWDER PO SCH (11:30)
[2024-05-02] MEDS ORDERED: SODIUM CHLORIDE 0.9% 1,000 ML IV SCH (11:30)
[2024-05-02] MEDS ORDERED: MAGNESIUM SULFATE HEPTAHYDRATE 50 ML IV SCH (11:30)
--- NOTE | 2024-05-02 12:00 | NUR ---
PT SITTING UP IN BEDSIDE CHAIR. PT C/O NAUSEA AND MEDICATED. IV STARTED TO RIGHT HAND WITH 24 G X 2 ATTEMPTS. PT MARTÍN WELL. CALL LIGHT IN REACH. WILL MONITOR.
--- NOTE | 2024-05-02 18:12 | NUR ---
PT ASSISTED WITH BATH AND BACK TO BED FOR DINNER. PT TOLERATED SOME OF HER LUNCH AND DENIES ANY FURTHER NAUSEA. IVF CONTINUE AND PATENT. WILL CONTINUE TO MONITOR. CALL LIGHT IN REACH AND BED ALARM IN PLACE. WILL CONTINUE TO MONITOR.
--- NOTE | 2024-05-02 19:50 | NUR ---
PT ON BED WATCHING TV AT THIS TIME. DENIES ANY PAIN/N/V. ALERT AND ORIENTED X3. RESPS ARE EVEN AND UNLABORED. NO SIGNS OF DISTRESS NOTED. LUNGS SOUNDS CLEAR TO AUSCULTATION. PUREWICK PATENT NOTED WITH ASHISH URINE. 20 G LEFT FOREARM INFUSING IVF NS AT 75MLS/HR. 24 G IV RIGHT HAND-SALINE LOCK-FLSUHED WITH 5 CC AT THIS TIME. DENIES ANY ADDITIONAL NEEDS. CALL LIGHT IN REACH AND SAFETY PRECAUITIONS ON PLACE.
[2024-05-02] MEDS ORDERED: LISINOPRIL 20 MG/TAB PO SCH (21:00)
--- NOTE | 2024-05-02 23:00 | NUR ---
PT TRANSFERRED FROM ER TO MED-SURG FLOOR AROUNF 1940HRS VIA WHEELCHAIR. REPORT RECEIVED FROM ER NURSE. PATIENTE IS ALERT AND ORIENTED X3, RESPS ARE EVEN AND UNLABORED. NO DISTRESS NOTED. LUNGS CLEAR ON UPPER LOBES BUT DIMINISHED ON LOWER LOBES. NO COUGH NOTED WHILE DOING THE ASSESSMENT. BOWEL SOUNDS ARE ACTIVE IN ALL FOUR QUADRANTS. 20 G IV R A/C INFUSING IVF NS AT 100ML/HR AT THIS TIME. TELE MONITOR ON PLACE ORDERED. ALYSSA HOSE ABD SAFETY SOCKS ON PLACE. STRONG PALPABLE PEDAL PULSES. DENIES ANY PAIN/N/V AT THIS TIME. INSTRUCTED TO CALL FOR ASSISTANCE. PATIENT ORIENTED TO ROOM, CALL LIGHT AND SURROUNDINGS. INSTRUCTED TO CALL FOR ASSISTANCE IF NEEDED. BED IN LOWEST POSITION AND SAFETY PRECAUTIONS ON PLACE.
[2024-05-03] VITALS (7 sets, daily range): BP systolic 148–178; BP diastolic 54–82
--- NOTE | 2024-05-03 | NUR ---
PT LAYING ON BED WATCHING TV AT THIS TIME. RESPS ARE EVEN AND UNLABORED. TELE MONITOR ON PLACE SHOSING SR-74 AT THIS MOMENT. CALL LIGHT IN RECAH AND SAFETY PRECAUTIONS ON PLACE.
--- NOTE | 2024-05-03 04:00 | NUR ---
PT REMAINS RESTING ON BED WATCHING TV AT THIS TIME. FLAGYL IV INFUSING VIA LEFT FOREARM AT THIS TIME. TELE REMAINS ON PLACE SHOWING SR-70'S. BREATHING IS EVEN AND UNLABORED. DENIES ANY NEEDS AT THIS TIME. CALL LIGHT IN RECAH AND SAFETY PRECAUTIONS ON PLACE.
[2024-05-03 05:07] LABS: BASO% 0.1 % (0-3); EOS% 4.5 % (0-8); HEMATOCRIT 39.3 % (37.0-47.0); HEMOGLOBIN 13.2 g/dl (12.0-16.0); IMMATURE GRANULOCYTES 0.7 % (0.0-5.0); LYMPH% 14.8 % (15-41); MEAN CELL VOLUME 99.2 fL CALC (80.0-100.0); MEAN CORPUSCULAR HGB 33.3 pG CALC (26.0-32.0); MEAN CORPUSCULAR HGB CONC 33.6 g/dL CAL (32.0-36.0); MONO% 8.9 % (2-13); NEUT# 5.05 thou/uL (2.00-7.15); RED BLOOD COUNT 3.96 mill/uL (4.20-5.60); RED CELL DISTRI WIDTH 12.9 % (11.5-15.5)
[2024-05-03 05:18] LABS: ALBUMIN 2.4 g/dL (3.2-5.0); BILIRUBIN, TOTAL 0.6 mg/dL (0.02-1.3); TOTAL PROTEIN 4.9 g/dL (6.3-8.2)
[2024-05-03 05:23] LABS: CREATININE 0.8 mg/dL (0.5-1.0)
[2024-05-03 05:26] LABS: POTASSIUM 4.1 mmol/l (3.5-5.1)
[2024-05-03] MEDS ORDERED: VENTOLIN HFA108 MCG IN (10:31)
[2024-05-03] MEDS ORDERED: LEVOTHYROXIN150 MC1 PO (10:31)
[2024-05-03] MEDS ORDERED: LISINOPRIL20 M1 PO (10:33)
--- NOTE | 2024-05-03 17:16 | NUR ---
Report called to [facility] # [phone]. Spoke with nurse Flanagan. patient will be transported via MEdical transport with [facility] to ROOM 204.
== END 2024-05-03 18:20 | DRG 439 ==
LOC: ED 20:58 → ED-I 04-29 06:17 → ED 04-29 06:46 → MS2 04-29 06:47
PROVIDERS: Internal Medicine; Nurse Practitioner Family; ADMIT Internal Medicine; ATTEND Internal Medicine
DX: K85.90 Acute pancreatitis without necrosis or infection, unspecified (principal); E87.1 Hypo-osmolality and hyponatremia; T50.2X5A Adverse effect of carbonic-anhydrase inhibitors, benzothiadiazides and other diuretics, initial encounter; I12.9 Hypertensive chronic kidney disease with stage 1 through stage 4 chronic kidney disease, or unspecified chronic kidney disease; E11.22 Type 2 diabetes mellitus with diabetic chronic kidney disease; N18.9 Chronic kidney disease, unspecified; E11.40 Type 2 diabetes mellitus with diabetic neuropathy, unspecified; J44.9 Chronic obstructive pulmonary disease, unspecified; J32.0 Chronic maxillary sinusitis; E03.9 Hypothyroidism, unspecified; E78.5 Hyperlipidemia, unspecified; E66.01 Morbid (severe) obesity due to excess calories; H91.90 Unspecified hearing loss, unspecified ear; Z79.4 Long term (current) use of insulin; Z88.0 Allergy status to penicillin
CPT/HCPCS: J0360; J0696; J0744; J1815; J1836; J2405; J2470; J3475; Q9967

== ENCOUNTER 2024-06-15 14:53 | Observation (INO) | payer MEDICARE, OTHER ==
[~2024-06-15] VITALS: Ht 152.4 cm; Wt 97.0 kg
[2024-06-15] VITALS (14 sets, daily range): BP systolic 144–197; BP diastolic 64–125
[~2024-06-15 14:53] MED LIST changes: +CALCIUM + VITAM1 TAB; +CLONIDINE0.2 MG PO; +DOXYCYCL HYC100 M4 PO; +LEVOTHYROXIN150 MC1 PO; +LISINOPRIL20 M1 PO; +TOUJEO SOL300 UNIT/M SC; +VENTOLIN HFA108 MCG IN
[2024-06-15] MEDS ORDERED: SODIUM CHLORIDE 0.9% 1,000 ML IV ONE ×2 (15:00→15:15)
[2024-06-15 15:13] LABS: BASO% 0.4 % (0-3); EOS% 4.8 % (0-8); HEMATOCRIT 40.8 % (37.0-47.0); IMMATURE GRANULOCYTES 0.2 % (0.0-5.0); LYMPH% 20.7 % (15-41); MEAN CELL VOLUME 100.7 fL CALC (80.0-100.0); MEAN CORPUSCULAR HGB 32.1 pG CALC (26.0-32.0); MEAN CORPUSCULAR HGB CONC 31.9 g/dL CAL (32.0-36.0); MONO% 6.8 % (2-13); NEUT# 3.63 thou/uL (2.00-7.15); NEUT% 67.1 % (42-76); RED BLOOD COUNT 4.05 mill/uL (4.20-5.60)
[2024-06-15 15:25] LABS: ALKALINE PHOSPHATASE 91 u/l (38-126); BUN 20 mg/dL (8-23); BUN/CREATININE RATIO 20 (12-20 (CALC)); CARBON DIOXIDE 29 mmol/l (22-30); CHLORIDE 98 mmol/l (95-108); ESTIMATED GFR 57 ML/MIN (>=90 (CALC)); POTASSIUM 4.3 mmol/l (3.5-5.1)
[2024-06-15 15:50] LABS: ALBUMIN 3.9 g/dL (3.2-5.0); ANION GAP 10 (6-22 (CALC)); SGOT/AST 25 u/l (9-36); SODIUM 133 mmol/l (137-146); TOTAL PROTEIN 6.9 g/dL (6.3-8.2)
[2024-06-15 17:24] LABS: URINE BILIRUBIN - DIPSTICK Negative (NEGATIVE); URINE BLOOD DIPSTICK Moderate (NEGATIVE); URINE GLUCOSE - DIPSTICK 500 mg/dL (NEGATIVE); URINE KETONE Negative (NEGATIVE); URINE LEUK ESTERASE Trace (NEGATIVE); URINE NITRITE - DIPSTICK Negative (Negative); URINE PH 6.5 (4.5-8.0); URINE PROTEIN - DIPSTICK 30 mg/dL (NEG-TRACE); URINE SPECIFIC GRAVITY 1.015; URINE UROBILINOGEN - DIPSTICK 0.2 E.U./dL (0.2)
[2024-06-15 17:27] LABS: URINE COLOR Yellow
[2024-06-15 17:30] LABS: URINE BACTERIA RARE hpf
[2024-06-15] MEDS ORDERED: [UNRECOGNIZED DRUG - OTHER] (18:51)
[2024-06-15] MEDS ORDERED: MAGNESIUM HYDROXIDE 30 ML UDC PO PRN (19:10)
[2024-06-15] MEDS ORDERED: ACETAMINOPHEN 325 MG/TAB PO PRN (19:10)
[2024-06-15] MEDS ORDERED: SODIUM CHLORIDE 0.9% 1,000 ML IV PRN (19:10)
[2024-06-15] MEDS ORDERED: DEXTROSE 250 ML IV PRN ×2 (19:10)
[2024-06-15] MEDS ORDERED: hydrALAZINE HCL 20 MG/ML VIAL(1 ML) IV ONE (20:35)
[2024-06-15] MEDS ORDERED: INSULIN LISPRO 100 UNITS/ML ML SC SCH (21:00)
[2024-06-15] MEDS ORDERED: LISINOPRIL 20 MG/TAB PO SCH (21:00)
[2024-06-15] MEDS ORDERED: ENOXAPARIN SODIUM 40 MG/0.4 ML SYR SC SCH (21:00)
[2024-06-16 04:30] VITALS: BP 169/77
[2024-06-16 06:03] VITALS: BP 169/77
[2024-06-16 06:45] VITALS: BP 193/87
[2024-06-16 07:30] VITALS: BP 185/81
[2024-06-16] MEDS ORDERED: LABETALOL HCL 20 MG/ 4 ML CARTRG IV PRN (07:45)
[2024-06-16] MEDS ORDERED: LEVOTHYROXINE SODIUM 75 MCG/TAB PO SCH (08:00)
[2024-06-16] MEDS ORDERED: INSULIN GLARGINE 100 UNITS/ML SC SCH (09:00)
[2024-06-16] MEDS ORDERED: amLODIPine BESYLATE 5 MG/TAB PO SCH (09:00)
[2024-06-16] MEDS ORDERED: PANTOPRAZOLE SODIUM Sesquihydr 40 MG/TAB PO SCH (09:00)
[2024-06-16 10:48] VITALS: BP 182/78
[2024-06-16] MEDS ORDERED: NYSTOP100000 UNI TD (11:47)
[2024-06-16] MEDS ORDERED: AMLODIPINE BESYL5 MG PO (11:47)
[2024-06-16] MEDS ORDERED: FLUCONAZOLE 50 MG TAB PO SCH (12:30)
[2024-06-16] MEDS ORDERED: FLUCONAZOLE 150 MG/TAB PO SCH (12:30)
[2024-06-16 15:00] VITALS: BP 126/57
== END 2024-06-16 15:33 | disposition home health service (06) ==
LOC: ED 14:53 → ED-I 17:39 → ED 17:53 → MS2 17:54
PROVIDERS: Emergency Medicine; ADMIT Internal Medicine; ATTEND Internal Medicine
DX: R53.1 Weakness (principal); I10 Essential (primary) hypertension; E11.9 Type 2 diabetes mellitus without complications; E03.9 Hypothyroidism, unspecified; B37.2 Candidiasis of skin and nail; L21.9 Seborrheic dermatitis, unspecified; L29.2 Pruritus vulvae; H91.90 Unspecified hearing loss, unspecified ear; Z79.4 Long term (current) use of insulin; Z91.81 History of falling; Z20.822 Contact with and (suspected) exposure to COVID-19
CPT/HCPCS: G0378; J0360; J1650; J1815